=== PATIENT | female | born 2000 ===

== ENCOUNTER 2023-09-01 20:24 | Emergency (ER) | payer SELFPAY ==
[~2023-09-01] VITALS: Ht 177.8 cm; Wt 161.5 kg
[2023-09-01 22:45] VITALS: BP 146/94; TEMP 97.7; O2SAT 98
== END 2023-09-01 22:57 | disposition left against medical advice (07) ==
LOC: M ED 20:24
DX: Z53.21 Procedure and treatment not carried out due to patient leaving prior to being seen by health care provider (principal)